=== PATIENT | male | born 1955 | race Caucasian/White ===

== ENCOUNTER 2018-10-15 14:57 | Inpatient (IN) | payer OTHER ==
[2018-10-15] MEDS: NALOXONE (0.4 MG/ML) INJ IV (15:43)
[2018-10-15 16:31] LABS: ADD MAN DIFF? NO
[2018-10-15 16:38] LABS: WHITE BLOOD COUNT 8.2 10^3/ul (4.8-10.8)
[2018-10-15 16:38] LABS: BASOPHIL # 0.1 10^3/ul (0.0-0.1); EOSINOPHILS # 0.2 10^3/ul (0.0-0.5); EOSINOPHILS % 2.9 % (0.0-7.0); HEMATOCRIT 33.7 % (42.0-52.0); HEMOGLOBIN 11.2 g/dl (14.0-18.0); LYMPHOCYTES # 1.4 10^3/ul (0.8-2.9); LYMPHOCYTES % 17.3 % (15.0-51.0); MEAN CORPUSCULAR HEMOGLOBIN 31.8 pg (29.0-33.0); MEAN CORPUSCULAR HGB CONC 33.2 g/dl (32.0-37.0); MEAN CORPUSCULAR VOLUME 95.7 fl (82.0-101.0); MEAN PLATELET VOLUME 9.2 fl (7.4-10.4); MONOCYTE # 1.2 10^3/ul (0.3-0.9); MONOCYTES % 14.3 % (0.0-11.0); NEUTROPHIL # 5.3 10^3/ul (1.6-7.5); NEUTROPHILS % 64.1 % (39.0-77.0); PLATELET COUNT 218 10^3/UL (140-415); RED BLOOD COUNT 3.52 10^6/ul (4.70-6.10); RED CELL DISTRIBUTION WIDTH 17.6 % (11.5-14.5)
[2018-10-15 16:54] LABS: INR 1.14; PROTIME 14.7 Sec (11.9-14.9); PT RATIO 1.1
[2018-10-15 16:57] LABS: ALANINE AMINOTRANSFERASE 33 IU/L (13-69); ALBUMIN 2.8 g/dl (3.3-4.9); ALBUMIN/GLOBULIN RATIO 0.68; ALKALINE PHOSPHATASE 173 IU/L (42-121); ANION GAP 10 (5-13); ASPARTATE AMINO TRANSFERASE 95 IU/L (15-46); BILIRUBIN,INDIRECT 0.7 mg/dl (0-1.1); BILIRUBIN,TOTAL 0.7 mg/dl (0.2-1.3); BLOOD UREA NITROGEN 15 mg/dl (7-20); CALCIUM 8.5 mg/dl (8.4-10.2); CARBON DIOXIDE 21 mmol/L (21-31); CHLORIDE 108 mmol/L (97-110); CREATININE 0.86 mg/dl (0.61-1.24); Estimated GFR > 60 mL/min (>60); GLUCOSE 96 mg/dl (70-220); POTASSIUM 3.2 mmol/L (3.5-5.1); SODIUM 139 mmol/L (135-144); TOTAL PROTEIN 6.9 g/dl (6.1-8.1)
[2018-10-15 16:59] LABS: ACETAMINOPHEN < 10.0 ug/ml (10.0-30.0); ADD UMIC YES; SALICYLATE < 1.0 mg/dl (5.0-30.0); UR ASCORBIC ACID NEGATIVE (NEGATIVE); UR BACTERIA FEW /HPF (NONE SEEN); UR BILIRUBIN (Dip) NEGATIVE (NEGATIVE); UR BLOOD (Dip) 3+ mg/dL (NEGATIVE); UR CLARITY SLIGHTLY CLOUDY (CLEAR); UR COLOR AMBER (YELLOW); UR GLUCOSE (Dip) NEGATIVE (NEGATIVE); UR KETONES (Dip) TRACE mg/dL (NEGATIVE); UR LEUKOCYTE ESTERASE (Dip) NEGATIVE Leu/ul (NEGATIVE); UR MUCUS MANY /HPF (NONE SEEN); UR NITRITE (Dip) NEGATIVE (NEGATIVE); UR RBC 117 /HPF (0-5); UR SPECIFIC GRAVITY (Dip) 1.025 (1.003-1.030); UR SQUAMOUS EPITHELIAL CELL FEW /HPF (FEW); UR TOTAL PROTEIN (Dip) 2+ mg/dl (NEGATIVE); UR UROBILINOGEN (Dip) 2+ mg/dL (NEGATIVE); UR WBC 15 /HPF (0-5)
[2018-10-15 17:08] LABS: TROPONIN-I < 0.012 ng/ml (0.000-0.120)
[2018-10-15 17:29] LABS: AMPHETAMINE/METHAMPHETAMINE Negative (NEGATIVE); BARBITURATES Negative (NEGATIVE); BENZODIAZEPINES Negative (NEGATIVE); CANNABINOIDS Negative (NEGATIVE); COCAINE Negative (NEGATIVE); OPIATES Negative (NEGATIVE)
[2018-10-15] MEDS: metroNIDAZOLE 500 MG/NS (PMX) 100 ML IVPB (17:55)
[2018-10-15] MEDS: CEFEPIME 1GM/50 ML (PMX) 50 ML IVPB (17:56)
[2018-10-15] MEDS: SODIUM CHLORIDE 0.9% 1L BAG IV* (17:57)
[2018-10-15] MEDS: VANCOMYCIN 1 GM (PMX) 250 ML IVPB (18:53)
[2018-10-15] MEDS ORDERED: ONDANSETRON 4 MG INJ IV (21:00)
[2018-10-15] MEDS ORDERED: ACETAMINOPHEN 325 MG TAB PO (21:00)
[2018-10-15 22:17] LABS: LACTIC ACID 2.1 mmol/L (0.5-2.0)
[2018-10-16] MEDS ORDERED: NACL 0.9% 3 ML SYG IV
[2018-10-16] MEDS ORDERED: morphine 2 MG INJ IV
[2018-10-16] MEDS ORDERED: ONDANSETRON 4 MG INJ IV
[2018-10-16] MEDS: DEXTROSE 5%-0.45% NACL 1,000 ML IV ×3 (00:52→21:26)
[2018-10-16 01:18] LABS: CREATINE KINASE 111 IU/L (23-200)
[2018-10-16 01:31] LABS: CK INDEX 3.8; TROPONIN-I < 0.012 ng/ml (0.000-0.120)
[2018-10-16 01:58] LABS: CK-MB 4.27 ng/ml (0.0-2.4)
[2018-10-16 06:48] LABS: ADD MAN DIFF? NO
[2018-10-16 06:53] LABS: BASOPHIL # 0.1 10^3/ul (0.0-0.1); BASOPHILS % 0.7 % (0.0-2.0); EOSINOPHILS # 0.3 10^3/ul (0.0-0.5); EOSINOPHILS % 3.2 % (0.0-7.0); HEMATOCRIT 30.8 % (42.0-52.0); HEMOGLOBIN 10.1 g/dl (14.0-18.0); LYMPHOCYTES # 1.4 10^3/ul (0.8-2.9); LYMPHOCYTES % 16.8 % (15.0-51.0); MEAN CORPUSCULAR HGB CONC 32.8 g/dl (32.0-37.0); MEAN CORPUSCULAR VOLUME 97.5 fl (82.0-101.0); MEAN PLATELET VOLUME 9.1 fl (7.4-10.4); MONOCYTES % 11.8 % (0.0-11.0); NEUTROPHIL # 5.7 10^3/ul (1.6-7.5); PLATELET COUNT 147 10^3/UL (140-415); RED BLOOD COUNT 3.16 10^6/ul (4.70-6.10); RED CELL DISTRIBUTION WIDTH 17.7 % (11.5-14.5)
[2018-10-16 06:53] LABS: WHITE BLOOD COUNT 8.5 10^3/ul (4.8-10.8)
[2018-10-16] MEDS ORDERED: VANCOMYCIN IV PER PHARMACY XX (07:00)
[2018-10-16 07:01] LABS: HEMOGLOBIN A1C 4.6 % (0-5.9)
[2018-10-16 07:07] LABS: CREATINE KINASE 92 IU/L (23-200)
[2018-10-16 07:10] LABS: ALANINE AMINOTRANSFERASE 37 IU/L (13-69); ALBUMIN 2.1 g/dl (3.3-4.9); ALBUMIN/GLOBULIN RATIO 0.56; ALKALINE PHOSPHATASE 119 IU/L (42-121); ANION GAP 7 (5-13); ASPARTATE AMINO TRANSFERASE 67 IU/L (15-46); BILIRUBIN,INDIRECT 0.8 mg/dl (0-1.1); BILIRUBIN,TOTAL 0.8 mg/dl (0.2-1.3); BLOOD UREA NITROGEN 14 mg/dl (7-20); CALCIUM 7.6 mg/dl (8.4-10.2); CARBON DIOXIDE 24 mmol/L (21-31); CHLORIDE 110 mmol/L (97-110); CHOL/HDL RATIO 2.5 RATIO; CHOLESTEROL 96 mg/dl (100-200); CREATININE 0.72 mg/dl (0.61-1.24); Estimated GFR > 60 mL/min (>60); GLUCOSE 80 mg/dl (70-220); HDL CHOLESTEROL 38 mg/dl (30-78); LDL CHOLESTEROL,CALCULATED 48 mg/dl; MAGNESIUM 1.8 mg/dl (1.7-2.5); POTASSIUM 3.6 mmol/L (3.5-5.1); SODIUM 141 mmol/L (135-144); TOTAL PROTEIN 5.8 g/dl (6.1-8.1); TRIGLYCERIDES 50 mg/dl (0-149)
[2018-10-16 07:19] LABS: TROPONIN-I < 0.012 ng/ml (0.000-0.120)
[2018-10-16 07:28] LABS: CK-MB 3.68 ng/ml (0.0-2.4)
[2018-10-16 07:39] LABS: THYROID STIMULATING HORMONE 0.681 MIU/L (0.465-4.680)
[2018-10-16] MEDS: LEVETIRACETAM 1000 MG (PMX) 100 ML IVPB ×2 (08:14→22:37)
[2018-10-16] MEDS: CEFEPIME 1GM/50 ML (PMX) 50 ML IVPB ×2 (08:18→21:27)
[2018-10-16] MEDS: CHLORDIAZEPOXIDE 25 MG CAP PO ×3 (09:56→21:14)
[2018-10-16] MEDS: MULTIVITAMINS 10 ML, THIAMINE 100 MG, FOLIC ACID 1 MG in SOD CHLORIDE 0.9% 1,000 ML IVPB (10:06)
[2018-10-16] MEDS: GABAPENTIN 300 MG CAP PO ×2 (10:38→21:14)
[2018-10-16] MEDS: VANCOMYCIN HCL 1.25 GM in SOD CHLORIDE 0.9% 250 ML IVPB ×2 (10:59→23:03)
[2018-10-16] MEDS ORDERED: METHADONE (1 MG/ML 5 ML PO UD SYG) PO (11:00)
[2018-10-16] MEDS: METHADONE 10 MG TAB PO (11:38)
[2018-10-16] MEDS: traZODone 50 MG TAB PO (21:13)
[2018-10-17] MEDS: GUAIFENESIN/CODEINE 5ML CUP PO ×2 (00:28→22:10)
[2018-10-17] MEDS: DEXTROSE 5%-0.45% NACL 1,000 ML IV ×2 (04:49→16:01)
[2018-10-17 06:36] LABS: ADD MAN DIFF? NO
[2018-10-17 07:00] LABS: MAGNESIUM 1.7 mg/dl (1.7-2.5)
[2018-10-17 07:00] LABS: PHOSPHORUS 3.1 mg/dl (2.5-4.9)
[2018-10-17 07:02] LABS: ANION GAP 5 (5-13); BLOOD UREA NITROGEN 15 mg/dl (7-20); CALCIUM 7.8 mg/dl (8.4-10.2); CARBON DIOXIDE 26 mmol/L (21-31); CHLORIDE 107 mmol/L (97-110); CREATININE 0.73 mg/dl (0.61-1.24); Estimated GFR > 60 mL/min (>60); GLUCOSE 108 mg/dl (70-220); POTASSIUM 3.6 mmol/L (3.5-5.1); SODIUM 138 mmol/L (135-144)
[2018-10-17 08:19] LABS: WHITE BLOOD COUNT 5.4 10^3/ul (4.8-10.8)
[2018-10-17 08:19] LABS: BASOPHILS % 0.6 % (0.0-2.0); EOSINOPHILS # 0.4 10^3/ul (0.0-0.5); EOSINOPHILS % 6.4 % (0.0-7.0); HEMATOCRIT 33.3 % (42.0-52.0); HEMOGLOBIN 10.7 g/dl (14.0-18.0); LYMPHOCYTES # 0.8 10^3/ul (0.8-2.9); LYMPHOCYTES % 13.8 % (15.0-51.0); MEAN CORPUSCULAR HEMOGLOBIN 31.8 pg (29.0-33.0); MEAN CORPUSCULAR HGB CONC 32.1 g/dl (32.0-37.0); MEAN CORPUSCULAR VOLUME 98.8 fl (82.0-101.0); MEAN PLATELET VOLUME 9.8 fl (7.4-10.4); MONOCYTE # 0.7 10^3/ul (0.3-0.9); MONOCYTES % 12.5 % (0.0-11.0); NEUTROPHIL # 3.6 10^3/ul (1.6-7.5); NEUTROPHILS % 66.3 % (39.0-77.0); PLATELET COUNT 117 10^3/UL (140-415); RED BLOOD COUNT 3.37 10^6/ul (4.70-6.10); RED CELL DISTRIBUTION WIDTH 17.9 % (11.5-14.5)
[2018-10-17] MEDS: LEVETIRACETAM 1000 MG (PMX) 100 ML IVPB ×2 (08:38→22:09)
[2018-10-17] MEDS: GABAPENTIN 300 MG CAP PO ×2 (08:44→22:09)
[2018-10-17] MEDS: METHADONE 10 MG TAB PO (08:44)
[2018-10-17] MEDS: CHLORDIAZEPOXIDE 25 MG CAP PO ×3 (08:45→22:09)
[2018-10-17] MEDS: CEFEPIME 1GM/50 ML (PMX) 50 ML IVPB ×2 (08:56→21:22)
[2018-10-17] MEDS: MULTIVITAMINS 10 ML, THIAMINE 100 MG, FOLIC ACID 1 MG in SOD CHLORIDE 0.9% 1,000 ML IVPB (09:32)
[2018-10-17] MEDS: VANCOMYCIN HCL 1.25 GM in SOD CHLORIDE 0.9% 250 ML IVPB (09:37)
[2018-10-17 11:51] LABS: HAAIG REFLEX REFLEX FILED
[2018-10-17] MEDS: FUROSEMIDE 20 MG INJ IV (12:28)
[2018-10-17 12:37] LABS: HEPATITIS B SURFACE ANTIGEN NEGATIVE (NEGATIVE)
[2018-10-17 12:56] LABS: HEPATITIS B CORE ANTIBODY REACTIVE (NEGATIVE)
[2018-10-17 12:59] LABS: HEPATITIS C VIRAL ANTIBODY REACTIVE (NEGATIVE)
[2018-10-17] MEDS: traZODone 50 MG TAB PO (22:09)
[2018-10-18] MEDS: VANCOMYCIN 1 GM 250 ML IVPB ×2 (02:09→14:55)
[2018-10-18] MEDS: DEXTROSE 5%-0.45% NACL 1,000 ML IV (02:09)
[2018-10-18 06:46] LABS: ADD MAN DIFF? NO
[2018-10-18 06:57] LABS: BASOPHILS % 0.4 % (0.0-2.0); EOSINOPHILS # 0.3 10^3/ul (0.0-0.5); EOSINOPHILS % 3.9 % (0.0-7.0); HEMOGLOBIN 9.9 g/dl (14.0-18.0); LYMPHOCYTES # 1.1 10^3/ul (0.8-2.9); LYMPHOCYTES % 15.2 % (15.0-51.0); MEAN CORPUSCULAR HEMOGLOBIN 32.4 pg (29.0-33.0); MONOCYTES % 12.8 % (0.0-11.0); NEUTROPHILS % 67.2 % (39.0-77.0); PLATELET COUNT 113 10^3/UL (140-415); RED BLOOD COUNT 3.06 10^6/ul (4.70-6.10); RED CELL DISTRIBUTION WIDTH 17.7 % (11.5-14.5)
[2018-10-18 06:57] LABS: WHITE BLOOD COUNT 7.4 10^3/ul (4.8-10.8)
[2018-10-18 07:15] LABS: PHOSPHORUS 2.8 mg/dl (2.5-4.9)
[2018-10-18 07:15] LABS: MAGNESIUM 1.6 mg/dl (1.7-2.5)
[2018-10-18 07:28] LABS: ALANINE AMINOTRANSFERASE 30 IU/L (13-69); ALBUMIN 1.9 g/dl (3.3-4.9); ALBUMIN/GLOBULIN RATIO 0.55; ALKALINE PHOSPHATASE 113 IU/L (42-121); ANION GAP 4 (5-13); ASPARTATE AMINO TRANSFERASE 51 IU/L (15-46); BILIRUBIN,INDIRECT 0.9 mg/dl (0-1.1); BILIRUBIN,TOTAL 0.9 mg/dl (0.2-1.3); BLOOD UREA NITROGEN 16 mg/dl (7-20); CALCIUM 7.4 mg/dl (8.4-10.2); CARBON DIOXIDE 28 mmol/L (21-31); CHLORIDE 108 mmol/L (97-110); CREATININE 0.73 mg/dl (0.61-1.24); Estimated GFR > 60 mL/min (>60); GLUCOSE 95 mg/dl (70-220); POTASSIUM 3.7 mmol/L (3.5-5.1); SODIUM 140 mmol/L (135-144); TOTAL PROTEIN 5.3 g/dl (6.1-8.1)
[2018-10-18] MEDS: LEVETIRACETAM 1000 MG (PMX) 100 ML IVPB ×2 (09:48→21:04)
[2018-10-18] MEDS: CHLORDIAZEPOXIDE 25 MG CAP PO ×2 (09:50→20:48)
[2018-10-18] MEDS: METHADONE 10 MG TAB PO (09:50)
[2018-10-18] MEDS: CEFEPIME 1GM/50 ML (PMX) 50 ML IVPB ×2 (09:51→20:48)
[2018-10-18] MEDS: GABAPENTIN 300 MG CAP PO ×2 (09:51→20:48)
[2018-10-18] MEDS: FUROSEMIDE 20 MG INJ IV (09:51)
[2018-10-18] MEDS: traZODone 50 MG TAB PO (20:48)
[2018-10-18] MEDS: SOD CHLORIDE 0.9% 100 ML (22:44)
[2018-10-19] MEDS: IOHEXOL 300MG/ML 150 ML BTL (00:25)
[2018-10-19] MEDS: VANCOMYCIN 1 GM 250 ML IVPB (01:48)
[2018-10-19] MEDS: CEFEPIME 1GM/50 ML (PMX) 50 ML IVPB ×2 (09:42→21:56)
[2018-10-19] MEDS: CHLORDIAZEPOXIDE 25 MG CAP PO (09:51)
[2018-10-19] MEDS: GABAPENTIN 300 MG CAP PO ×2 (09:51→21:56)
[2018-10-19] MEDS: FUROSEMIDE 20 MG INJ IV (09:51)
[2018-10-19] MEDS: METHADONE 10 MG TAB PO (09:52)
[2018-10-19] MEDS: LEVETIRACETAM 1000 MG (PMX) 100 ML IVPB ×2 (10:42→23:22)
[2018-10-19] MEDS: HYDROCODONE/APAP (5/325) TAB PO ×2 (10:43→23:22)
[2018-10-19 13:15] LABS: ADD MAN DIFF? NO
[2018-10-19 13:21] LABS: WHITE BLOOD COUNT 7.9 10^3/ul (4.8-10.8)
[2018-10-19 13:22] LABS: BASOPHIL # 0.1 10^3/ul (0.0-0.1); BASOPHILS % 0.8 % (0.0-2.0); EOSINOPHILS # 0.3 10^3/ul (0.0-0.5); EOSINOPHILS % 4.2 % (0.0-7.0); HEMATOCRIT 33.4 % (42.0-52.0); LYMPHOCYTES % 12.1 % (15.0-51.0); MEAN CORPUSCULAR HEMOGLOBIN 31.8 pg (29.0-33.0); MEAN CORPUSCULAR HGB CONC 32.9 g/dl (32.0-37.0); MEAN CORPUSCULAR VOLUME 96.5 fl (82.0-101.0); MEAN PLATELET VOLUME 10.2 fl (7.4-10.4); MONOCYTE # 1.2 10^3/ul (0.3-0.9); MONOCYTES % 14.7 % (0.0-11.0); NEUTROPHIL # 5.3 10^3/ul (1.6-7.5); NEUTROPHILS % 67.7 % (39.0-77.0); PLATELET COUNT 133 10^3/UL (140-415); POSITIVE DIFF @See below; RED BLOOD COUNT 3.46 10^6/ul (4.70-6.10); RED CELL DISTRIBUTION WIDTH 17.9 % (11.5-14.5)
[2018-10-19 13:38] LABS: ALANINE AMINOTRANSFERASE 27 IU/L (13-69); ALBUMIN 2.1 g/dl (3.3-4.9); ALBUMIN/GLOBULIN RATIO 0.56; ALKALINE PHOSPHATASE 113 IU/L (42-121); ANION GAP 4 (5-13); ASPARTATE AMINO TRANSFERASE 51 IU/L (15-46); BILIRUBIN,INDIRECT 0.6 mg/dl (0-1.1); BILIRUBIN,TOTAL 0.6 mg/dl (0.2-1.3); BLOOD UREA NITROGEN 19 mg/dl (7-20); CALCIUM 7.4 mg/dl (8.4-10.2); CARBON DIOXIDE 29 mmol/L (21-31); CHLORIDE 105 mmol/L (97-110); CREATININE 0.84 mg/dl (0.61-1.24); Estimated GFR > 60 mL/min (>60); GLUCOSE 99 mg/dl (70-220); POTASSIUM 3.6 mmol/L (3.5-5.1); SODIUM 138 mmol/L (135-144); TOTAL PROTEIN 5.8 g/dl (6.1-8.1)
[2018-10-19 13:45] LABS: VANCOMYCIN,TROUGH 16.7 ug/ml (10.0-20.0)
[2018-10-19] MEDS: traZODone 50 MG TAB PO (21:56)
[2018-10-19] MEDS: VANCOMYCIN HCL 1.25 GM in SOD CHLORIDE 0.9% 250 ML IVPB (23:22)
[2018-10-19] MEDS: ALBUTEROL/IPRATROPIUM (NEB) 3 ML AMP HHN (23:44)
[2018-10-20 07:52] LABS: ADD MAN DIFF? NO
[2018-10-20 07:54] LABS: BASOPHIL # 0.1 10^3/ul (0.0-0.1); BASOPHILS % 0.6 % (0.0-2.0); EOSINOPHILS # 0.3 10^3/ul (0.0-0.5); EOSINOPHILS % 4.1 % (0.0-7.0); HEMATOCRIT 31.5 % (42.0-52.0); HEMOGLOBIN 10.4 g/dl (14.0-18.0); LYMPHOCYTES # 1.2 10^3/ul (0.8-2.9); LYMPHOCYTES % 14.9 % (15.0-51.0); MEAN CORPUSCULAR HEMOGLOBIN 31.6 pg (29.0-33.0); MEAN CORPUSCULAR VOLUME 95.7 fl (82.0-101.0); MONOCYTE # 1.2 10^3/ul (0.3-0.9); MONOCYTES % 15.6 % (0.0-11.0); NEUTROPHILS % 64.4 % (39.0-77.0); PLATELET COUNT 125 10^3/UL (140-415); RED BLOOD COUNT 3.29 10^6/ul (4.70-6.10); RED CELL DISTRIBUTION WIDTH 17.5 % (11.5-14.5)
[2018-10-20 07:54] LABS: WHITE BLOOD COUNT 7.8 10^3/ul (4.8-10.8)
[2018-10-20 08:20] LABS: ANION GAP 2 (5-13); BLOOD UREA NITROGEN 24 mg/dl (7-20); CALCIUM 7.3 mg/dl (8.4-10.2); CARBON DIOXIDE 28 mmol/L (21-31); CHLORIDE 109 mmol/L (97-110); CREATININE 0.83 mg/dl (0.61-1.24); Estimated GFR > 60 mL/min (>60); GLUCOSE 84 mg/dl (70-220); MAGNESIUM 1.8 mg/dl (1.7-2.5); PHOSPHORUS 3.4 mg/dl (2.5-4.9); POTASSIUM 4.2 mmol/L (3.5-5.1); SODIUM 139 mmol/L (135-144)
[2018-10-20] MEDS: LEVETIRACETAM 1000 MG (PMX) 100 ML IVPB ×2 (08:20→21:33)
[2018-10-20] MEDS: METHADONE 10 MG TAB PO (08:21)
[2018-10-20] MEDS: GABAPENTIN 300 MG CAP PO ×2 (08:21→20:58)
[2018-10-20] MEDS: CEFEPIME 1GM/50 ML (PMX) 50 ML IVPB ×2 (09:28→20:57)
[2018-10-20] MEDS: VANCOMYCIN HCL 1.25 GM in SOD CHLORIDE 0.9% 250 ML IVPB ×2 (20:00→20:57)
[2018-10-20] MEDS: ALBUTEROL/IPRATROPIUM (NEB) 3 ML AMP HHN (21:42)
[2018-10-21] MEDS: ALBUTEROL/IPRATROPIUM (NEB) 3 ML AMP HHN ×7 (00:56→20:23)
[2018-10-21 06:58] LABS: ADD MAN DIFF? NO
[2018-10-21 07:02] LABS: WHITE BLOOD COUNT 7.7 10^3/ul (4.8-10.8)
[2018-10-21 07:02] LABS: BASOPHIL # 0.1 10^3/ul (0.0-0.1); BASOPHILS % 0.6 % (0.0-2.0); EOSINOPHILS # 0.2 10^3/ul (0.0-0.5); EOSINOPHILS % 2.2 % (0.0-7.0); HEMATOCRIT 31.7 % (42.0-52.0); HEMOGLOBIN 10.3 g/dl (14.0-18.0); LYMPHOCYTES % 12.7 % (15.0-51.0); MEAN CORPUSCULAR HEMOGLOBIN 31.4 pg (29.0-33.0); MEAN CORPUSCULAR HGB CONC 32.5 g/dl (32.0-37.0); MEAN CORPUSCULAR VOLUME 96.6 fl (82.0-101.0); MEAN PLATELET VOLUME 10.5 fl (7.4-10.4); MONOCYTE # 1.2 10^3/ul (0.3-0.9); MONOCYTES % 15.5 % (0.0-11.0); NEUTROPHIL # 5.3 10^3/ul (1.6-7.5); NEUTROPHILS % 68.5 % (39.0-77.0); PLATELET COUNT 139 10^3/UL (140-415); RED BLOOD COUNT 3.28 10^6/ul (4.70-6.10); RED CELL DISTRIBUTION WIDTH 17.4 % (11.5-14.5)
[2018-10-21 07:41] LABS: ANION GAP 3 (5-13); BLOOD UREA NITROGEN 25 mg/dl (7-20); CALCIUM 7.4 mg/dl (8.4-10.2); CARBON DIOXIDE 26 mmol/L (21-31); CHLORIDE 108 mmol/L (97-110); CREATININE 0.74 mg/dl (0.61-1.24); Estimated GFR > 60 mL/min (>60); GLUCOSE 94 mg/dl (70-220); POTASSIUM 4.5 mmol/L (3.5-5.1); SODIUM 137 mmol/L (135-144)
[2018-10-21] MEDS: GABAPENTIN 300 MG CAP PO ×2 (08:22→20:57)
[2018-10-21] MEDS: LEVETIRACETAM 1000 MG (PMX) 100 ML IVPB ×2 (08:22→20:57)
[2018-10-21] MEDS: ENOXAPARIN 40 MG/0.4 ML SYG SC (08:25)
[2018-10-21] MEDS: CEFEPIME 1GM/50 ML (PMX) 50 ML IVPB ×2 (08:56→20:57)
[2018-10-21] MEDS: HYDROCODONE/APAP (5/325) TAB PO ×2 (09:32→23:37)
[2018-10-21 13:45] LABS: AMMONIA 29 umol/l (9-30)
[2018-10-21] MEDS: VANCOMYCIN HCL 1.25 GM in SOD CHLORIDE 0.9% 250 ML IVPB (20:51)
[2018-10-22] MEDS: ALBUTEROL/IPRATROPIUM (NEB) 3 ML AMP HHN ×8 (01:45→23:48)
[2018-10-22 06:59] LABS: ADD MAN DIFF? NO
[2018-10-22] MEDS ORDERED: SUCCINYLCHOLINE CHLORIDE 100 MG/5 ML SYG IV (07:00)
[2018-10-22] MEDS ORDERED: PROPOFOL 200 MG INJ (07:00)
[2018-10-22 07:06] LABS: WHITE BLOOD COUNT 6.1 10^3/ul (4.8-10.8)
[2018-10-22 07:06] LABS: BASOPHILS % 0.7 % (0.0-2.0); EOSINOPHILS # 0.3 10^3/ul (0.0-0.5); EOSINOPHILS % 5.4 % (0.0-7.0); HEMATOCRIT 30.2 % (42.0-52.0); HEMOGLOBIN 9.8 g/dl (14.0-18.0); LYMPHOCYTES % 17.1 % (15.0-51.0); MEAN CORPUSCULAR HEMOGLOBIN 31.4 pg (29.0-33.0); MEAN CORPUSCULAR HGB CONC 32.5 g/dl (32.0-37.0); MEAN CORPUSCULAR VOLUME 96.8 fl (82.0-101.0); MEAN PLATELET VOLUME 9.9 fl (7.4-10.4); MONOCYTE # 1.1 10^3/ul (0.3-0.9); MONOCYTES % 18.5 % (0.0-11.0); NEUTROPHIL # 3.5 10^3/ul (1.6-7.5); PLATELET COUNT 124 10^3/UL (140-415); RED BLOOD COUNT 3.12 10^6/ul (4.70-6.10); RED CELL DISTRIBUTION WIDTH 17.4 % (11.5-14.5)
[2018-10-22 07:35] LABS: ANION GAP 5 (5-13); BLOOD UREA NITROGEN 22 mg/dl (7-20); CALCIUM 7.4 mg/dl (8.4-10.2); CARBON DIOXIDE 27 mmol/L (21-31); CHLORIDE 106 mmol/L (97-110); CREATININE 0.68 mg/dl (0.61-1.24); Estimated GFR > 60 mL/min (>60); GLUCOSE 104 mg/dl (70-220); MAGNESIUM 1.9 mg/dl (1.7-2.5); PHOSPHORUS 3.3 mg/dl (2.5-4.9); SODIUM 138 mmol/L (135-144)
[2018-10-22] MEDS: GABAPENTIN 300 MG CAP PO ×2 (08:48→20:27)
[2018-10-22] MEDS: LEVETIRACETAM 1000 MG (PMX) 100 ML IVPB ×2 (08:48→20:27)
[2018-10-22] MEDS: CEFEPIME 1GM/50 ML (PMX) 50 ML IVPB ×2 (08:48→20:49)
[2018-10-22] MEDS: INDOMETHACIN 50 MG SUPP PR (12:30)
[2018-10-22] MEDS ORDERED: IOHEXOL 300MG/ML 30 ML BTL ×2 (13:41→15:23)
[2018-10-22] MEDS ORDERED: EPHEDrine SULFATE 50 MG/5 ML SYG IV (14:30)
[2018-10-22] MEDS ORDERED: ONDANSETRON 4 MG INJ IV (14:30)
[2018-10-22] MEDS ORDERED: HYDROmorphONE 1 MG/5 ML IV SYRINGE IV ×2 (14:30→16:30)
[2018-10-22] MEDS ORDERED: MEPERIDINE 25 MG INJ IV (14:30)
[2018-10-22] MEDS ORDERED: LABETALOL HCL 20MG INJ IV (14:30)
[2018-10-22] MEDS ORDERED: FENTAnyl 50 MCG/ML VIAL IV (14:30)
[2018-10-22] MEDS ORDERED: DIPHENHYDRAMINE 50 MG INJ IV (14:30)
[2018-10-22] MEDS ORDERED: PROCHLORPERAZINE 10 MG INJ IV (14:30)
[2018-10-22] MEDS ORDERED: hydrALAzine 20 MG INJ IV (14:30)
[2018-10-22] MEDS ORDERED: MIDAZOLAM 1 MG/ML 2 ML INJ (14:52)
[2018-10-22] MEDS ORDERED: LIDOCAINE 2% (SDV) 5 ML INJ (14:52)
[2018-10-22] MEDS ORDERED: PROPOFOL 20 ML (14:52)
[2018-10-22] MEDS ORDERED: FENTAnyl 50 MCG/ML VIAL (14:52)
[2018-10-22] MEDS ORDERED: ONDANSETRON 4 MG INJ (15:08)
[2018-10-22] MEDS ORDERED: DEXAMETHASONE 4 MG/ML 5 ML INJ (15:08)
[2018-10-22] MEDS ORDERED: FAMOTIDINE 20 MG INJ (15:10)
[2018-10-22] MEDS ORDERED: METOCLOPRAMIDE 10 MG INJ (15:11)
[2018-10-22] MEDS: METOCLOPRAMIDE 10 MG INJ IV ×2 (18:12→23:34)
[2018-10-22 20:18] LABS: VANCOMYCIN,TROUGH 10.5 ug/ml (10.0-20.0)
[2018-10-22] MEDS: VANCOMYCIN HCL 1.25 GM in SOD CHLORIDE 0.9% 250 ML IVPB (22:32)
[2018-10-23] MEDS ORDERED: PENDING SANTYL ORDER FOR WOUND CARE XX (04:00)
[2018-10-23] MEDS: ALBUTEROL/IPRATROPIUM (NEB) 3 ML AMP HHN ×5 (04:05→20:57)
[2018-10-23] MEDS: SOD CHLORIDE 0.9% 1,000 ML IV (04:58)
[2018-10-23] MEDS: METOCLOPRAMIDE 10 MG INJ IV ×3 (05:00→17:07)
[2018-10-23] MEDS: LEVETIRACETAM 1000 MG (PMX) 100 ML IVPB ×2 (08:23→21:07)
[2018-10-23] MEDS: CEFEPIME 1GM/50 ML (PMX) 50 ML IVPB ×2 (08:24→20:21)
[2018-10-23] MEDS: GABAPENTIN 300 MG CAP PO ×2 (08:24→20:21)
[2018-10-24] MEDS: ALBUTEROL/IPRATROPIUM (NEB) 3 ML AMP HHN ×6 (00:20→19:11)
[2018-10-24] MEDS: METOCLOPRAMIDE 10 MG INJ IV ×4 (00:35→17:42)
[2018-10-24] MEDS: LORAZEPAM 2 MG INJ IV ×2 (00:37→21:29)
[2018-10-24 05:57] LABS: ADD MAN DIFF? NO
[2018-10-24 06:06] LABS: WHITE BLOOD COUNT 10.2 10^3/ul (4.8-10.8)
[2018-10-24 06:06] LABS: BASOPHIL # 0.1 10^3/ul (0.0-0.1); BASOPHILS % 0.5 % (0.0-2.0); EOSINOPHILS % 0.2 % (0.0-7.0); HEMATOCRIT 30.8 % (42.0-52.0); HEMOGLOBIN 10.2 g/dl (14.0-18.0); LYMPHOCYTES # 0.8 10^3/ul (0.8-2.9); LYMPHOCYTES % 8.1 % (15.0-51.0); MEAN CORPUSCULAR HEMOGLOBIN 32.2 pg (29.0-33.0); MEAN CORPUSCULAR HGB CONC 33.1 g/dl (32.0-37.0); MEAN CORPUSCULAR VOLUME 97.2 fl (82.0-101.0); MEAN PLATELET VOLUME 10.2 fl (7.4-10.4); MONOCYTE # 1.5 10^3/ul (0.3-0.9); MONOCYTES % 14.6 % (0.0-11.0); NEUTROPHIL # 7.7 10^3/ul (1.6-7.5); NEUTROPHILS % 76.1 % (39.0-77.0); PLATELET COUNT 177 10^3/UL (140-415); RED BLOOD COUNT 3.17 10^6/ul (4.70-6.10); RED CELL DISTRIBUTION WIDTH 16.5 % (11.5-14.5)
[2018-10-24 06:27] LABS: ALANINE AMINOTRANSFERASE 21 IU/L (13-69); ALBUMIN 2.1 g/dl (3.3-4.9); ALBUMIN/GLOBULIN RATIO 0.56; ALKALINE PHOSPHATASE 131 IU/L (42-121); ANION GAP 5 (5-13); ASPARTATE AMINO TRANSFERASE 58 IU/L (15-46); BILIRUBIN,INDIRECT 0.4 mg/dl (0-1.1); BILIRUBIN,TOTAL 0.4 mg/dl (0.2-1.3); BLOOD UREA NITROGEN 25 mg/dl (7-20); CALCIUM 7.9 mg/dl (8.4-10.2); CARBON DIOXIDE 27 mmol/L (21-31); CHLORIDE 108 mmol/L (97-110); CREATININE 0.59 mg/dl (0.61-1.24); Estimated GFR > 60 mL/min (>60); GLUCOSE 106 mg/dl (70-220); POTASSIUM 4.7 mmol/L (3.5-5.1); SODIUM 140 mmol/L (135-144); TOTAL PROTEIN 5.8 g/dl (6.1-8.1)
[2018-10-24 07:02] LABS: MAGNESIUM 2.2 mg/dl (1.7-2.5)
[2018-10-24 07:02] LABS: PHOSPHORUS 2.2 mg/dl (2.5-4.9)
[2018-10-24] MEDS: HYDROCODONE/APAP (5/325) TAB PO ×2 (09:28→19:47)
[2018-10-24] MEDS: GABAPENTIN 300 MG CAP PO ×2 (09:29→20:05)
[2018-10-24] MEDS: THIAMINE 100 MG TAB PO (09:29)
[2018-10-24] MEDS: CEFEPIME 1GM/50 ML (PMX) 50 ML IVPB (09:41)
[2018-10-24] MEDS: LEVETIRACETAM 1000 MG (PMX) 100 ML IVPB ×2 (10:16→21:02)
[2018-10-25] MEDS: METOCLOPRAMIDE 10 MG INJ IV ×4 (00:19→17:29)
[2018-10-25] MEDS: ALBUTEROL/IPRATROPIUM (NEB) 3 ML AMP HHN ×7 (00:48→20:28)
[2018-10-25] MEDS: HYDROCODONE/APAP (5/325) TAB PO ×3 (05:10→20:08)
[2018-10-25] MEDS: LORAZEPAM 2 MG INJ IV ×2 (05:10→22:56)
[2018-10-25] MEDS: morphine 2 MG INJ IV (06:14)
[2018-10-25] MEDS: THIAMINE 100 MG TAB PO (09:13)
[2018-10-25] MEDS: LEVETIRACETAM 1000 MG (PMX) 100 ML IVPB ×2 (09:13→20:08)
[2018-10-25] MEDS: CHLORDIAZEPOXIDE 25 MG CAP PO ×3 (09:13→20:08)
[2018-10-25] MEDS: GABAPENTIN 300 MG CAP PO ×2 (09:13→20:08)
[2018-10-25] MEDS: FUROSEMIDE 20 MG INJ IV (12:47)
[2018-10-25] MEDS: LACTULOSE 30ML CUP PO (20:08)
[2018-10-26] MEDS: ALBUTEROL/IPRATROPIUM (NEB) 3 ML AMP HHN ×6 (00:08→20:39)
[2018-10-26] MEDS: METOCLOPRAMIDE 10 MG INJ IV ×4 (00:21→19:36)
[2018-10-26 05:55] LABS: ADD MAN DIFF? NO
[2018-10-26 05:58] LABS: WHITE BLOOD COUNT 4.5 10^3/ul (4.8-10.8)
[2018-10-26 05:58] LABS: BASOPHIL # 0.1 10^3/ul (0.0-0.1); BASOPHILS % 1.1 % (0.0-2.0); EOSINOPHILS # 0.3 10^3/ul (0.0-0.5); EOSINOPHILS % 6.9 % (0.0-7.0); HEMATOCRIT 36.7 % (42.0-52.0); LYMPHOCYTES # 0.9 10^3/ul (0.8-2.9); LYMPHOCYTES % 20.6 % (15.0-51.0); MEAN CORPUSCULAR HEMOGLOBIN 31.7 pg (29.0-33.0); MEAN CORPUSCULAR HGB CONC 32.7 g/dl (32.0-37.0); MEAN CORPUSCULAR VOLUME 97.1 fl (82.0-101.0); MEAN PLATELET VOLUME 9.6 fl (7.4-10.4); MONOCYTE # 0.7 10^3/ul (0.3-0.9); NEUTROPHIL # 2.5 10^3/ul (1.6-7.5); NEUTROPHILS % 54.7 % (39.0-77.0); PLATELET COUNT 172 10^3/UL (140-415); RED BLOOD COUNT 3.78 10^6/ul (4.70-6.10); RED CELL DISTRIBUTION WIDTH 16.4 % (11.5-14.5)
[2018-10-26 06:27] LABS: ALANINE AMINOTRANSFERASE 30 IU/L (13-69); ALBUMIN 2.6 g/dl (3.3-4.9); ALBUMIN/GLOBULIN RATIO 0.59; ALKALINE PHOSPHATASE 129 IU/L (42-121); ANION GAP 4 (5-13); ASPARTATE AMINO TRANSFERASE 97 IU/L (15-46); BLOOD UREA NITROGEN 20 mg/dl (7-20); CALCIUM 8.4 mg/dl (8.4-10.2); CARBON DIOXIDE 30 mmol/L (21-31); CHLORIDE 106 mmol/L (97-110); CREATININE 0.58 mg/dl (0.61-1.24); Estimated GFR > 60 mL/min (>60); GLUCOSE 74 mg/dl (70-220); POTASSIUM 4.7 mmol/L (3.5-5.1); SODIUM 140 mmol/L (135-144)
[2018-10-26] MEDS: LEVETIRACETAM 1000 MG (PMX) 100 ML IVPB (10:16)
[2018-10-26] MEDS: SPIRONOLACTONE 50 MG TAB PO (10:17)
[2018-10-26] MEDS: LACTULOSE 30ML CUP PO ×2 (10:17→20:21)
[2018-10-26] MEDS: THIAMINE 100 MG TAB PO (10:18)
[2018-10-26] MEDS: FUROSEMIDE 20 MG TAB PO (10:18)
[2018-10-26] MEDS: GABAPENTIN 300 MG CAP PO ×2 (10:18→20:20)
[2018-10-26] MEDS: HYDROCODONE/APAP (5/325) TAB PO (10:19)
[2018-10-26 15:46] LABS: B-TYPE NATRIURETIC PEPTIDE 308 PG/ML (0-125)
[2018-10-26] MEDS: LEVETIRACETAM 500 MG TAB PO (20:20)
[2018-10-27] MEDS: ALBUTEROL/IPRATROPIUM (NEB) 3 ML AMP HHN ×6 (00:31→20:08)
[2018-10-27] MEDS: METOCLOPRAMIDE 10 MG INJ IV ×4 (05:40→18:40)
[2018-10-27] MEDS: LACTULOSE 30ML CUP PO ×2 (09:43→21:17)
[2018-10-27] MEDS: GABAPENTIN 300 MG CAP PO ×2 (09:43→21:17)
[2018-10-27] MEDS: THIAMINE 100 MG TAB PO (09:43)
[2018-10-27] MEDS: SPIRONOLACTONE 50 MG TAB PO (09:43)
[2018-10-27] MEDS: LEVETIRACETAM 500 MG TAB PO ×2 (09:43→21:17)
[2018-10-27] MEDS: HYDROCODONE/APAP (5/325) TAB PO ×2 (09:43→15:30)
[2018-10-27] MEDS: FUROSEMIDE 20 MG INJ IV (09:44)
[2018-10-27] MEDS: LORAZEPAM 2 MG INJ IV (09:59)
[2018-10-27 16:20] LABS: INR 1.17; PT RATIO 1.2
[2018-10-27 16:21] LABS: PARTIAL THROMBOPLASTIN TIME 32.5 Sec (23.0-35.0)
[2018-10-27] MEDS: LIDOCAINE 1% (MPF) 5 ML VIAL (16:57)
[2018-10-27 17:45] LABS: FLD PMN% 24.8 %; FLD RBC 0 /uL; FLD WBC 105 /cmm
[2018-10-27 18:22] LABS: FLD CLARITY HAZY
[2018-10-27 18:22] LABS: FLD TYPE ASCITES
[2018-10-27 18:23] LABS: FLD COLOR OTHER
[2018-10-27 18:24] LABS: FLD MN% 75.2 %
[2018-10-27] MEDS: HEPARIN 5,000 UNIT/1 ML VIAL SC (21:19)
[2018-10-28] MEDS: ALBUTEROL/IPRATROPIUM (NEB) 3 ML AMP HHN ×6 (00:49→20:56)
[2018-10-28] MEDS: METOCLOPRAMIDE 10 MG INJ IV ×4 (05:19→18:33)
[2018-10-28] MEDS: LACTULOSE 30ML CUP PO ×3 (05:19→22:00)
[2018-10-28 07:12] LABS: WHITE BLOOD COUNT 5.6 10^3/ul (4.8-10.8)
[2018-10-28 07:12] LABS: BASOPHILS % 0.7 % (0.0-2.0); EOSINOPHILS # 0.3 10^3/ul (0.0-0.5); EOSINOPHILS % 5.9 % (0.0-7.0); HEMATOCRIT 34.8 % (42.0-52.0); HEMOGLOBIN 11.4 g/dl (14.0-18.0); LYMPHOCYTES # 0.9 10^3/ul (0.8-2.9); LYMPHOCYTES % 16.3 % (15.0-51.0); MEAN CORPUSCULAR HEMOGLOBIN 31.8 pg (29.0-33.0); MEAN CORPUSCULAR HGB CONC 32.8 g/dl (32.0-37.0); MEAN CORPUSCULAR VOLUME 96.9 fl (82.0-101.0); MEAN PLATELET VOLUME 9.3 fl (7.4-10.4); MONOCYTE # 0.7 10^3/ul (0.3-0.9); MONOCYTES % 12.4 % (0.0-11.0); NEUTROPHIL # 3.6 10^3/ul (1.6-7.5); NEUTROPHILS % 64.2 % (39.0-77.0); PLATELET COUNT 177 10^3/UL (140-415); RED BLOOD COUNT 3.59 10^6/ul (4.70-6.10); RED CELL DISTRIBUTION WIDTH 16.6 % (11.5-14.5)
[2018-10-28 07:13] LABS: ADD MAN DIFF? NO
[2018-10-28 07:36] LABS: ALANINE AMINOTRANSFERASE 38 IU/L (13-69); ALBUMIN 2.5 g/dl (3.3-4.9); ALBUMIN/GLOBULIN RATIO 0.62; ALKALINE PHOSPHATASE 131 IU/L (42-121); ANION GAP 2 (5-13); ASPARTATE AMINO TRANSFERASE 73 IU/L (15-46); BLOOD UREA NITROGEN 16 mg/dl (7-20); CALCIUM 8.6 mg/dl (8.4-10.2); CARBON DIOXIDE 34 mmol/L (21-31); CHLORIDE 103 mmol/L (97-110); CREATININE 0.63 mg/dl (0.61-1.24); Estimated GFR > 60 mL/min (>60); GLUCOSE 102 mg/dl (70-220); MAGNESIUM 1.8 mg/dl (1.7-2.5); PHOSPHORUS 3.6 mg/dl (2.5-4.9); POTASSIUM 4.3 mmol/L (3.5-5.1); SODIUM 139 mmol/L (135-144); TOTAL PROTEIN 6.5 g/dl (6.1-8.1)
[2018-10-28] MEDS: THIAMINE 100 MG TAB PO (09:09)
[2018-10-28] MEDS: GABAPENTIN 300 MG CAP PO ×2 (09:09→22:00)
[2018-10-28] MEDS: LEVETIRACETAM 500 MG TAB PO ×2 (09:09→22:00)
[2018-10-28] MEDS: SPIRONOLACTONE 50 MG TAB PO (09:09)
[2018-10-28] MEDS: FUROSEMIDE 20 MG INJ IV ×2 (09:09→22:01)
[2018-10-28] MEDS: HEPARIN 5,000 UNIT/1 ML VIAL SC ×2 (09:12→22:03)
[2018-10-28] MEDS: HYDROCODONE/APAP (5/325) TAB PO (14:31)
[2018-10-28] MEDS: ALBUMIN HUMAN 25% 50 ML IV (21:48)
[2018-10-29] MEDS: METOCLOPRAMIDE 10 MG INJ IV ×4 (00:33→17:45)
[2018-10-29] MEDS: ALBUTEROL/IPRATROPIUM (NEB) 3 ML AMP HHN ×6 (00:42→20:28)
[2018-10-29] MEDS: ALBUMIN HUMAN 25% 50 ML IV ×2 (03:47→12:10)
[2018-10-29] MEDS: LACTULOSE 30ML CUP PO (06:14)
[2018-10-29] MEDS: FUROSEMIDE 20 MG INJ IV (06:14)
[2018-10-29 06:28] LABS: ADD MAN DIFF? NO
[2018-10-29 06:33] LABS: WHITE BLOOD COUNT 6.5 10^3/ul (4.8-10.8)
[2018-10-29 06:33] LABS: BASOPHIL # 0.1 10^3/ul (0.0-0.1); BASOPHILS % 0.9 % (0.0-2.0); EOSINOPHILS # 0.5 10^3/ul (0.0-0.5); EOSINOPHILS % 6.9 % (0.0-7.0); HEMATOCRIT 32.8 % (42.0-52.0); LYMPHOCYTES # 1.1 10^3/ul (0.8-2.9); LYMPHOCYTES % 16.7 % (15.0-51.0); MEAN CORPUSCULAR HEMOGLOBIN 31.5 pg (29.0-33.0); MEAN CORPUSCULAR HGB CONC 33.5 g/dl (32.0-37.0); MEAN PLATELET VOLUME 9.5 fl (7.4-10.4); MONOCYTE # 0.8 10^3/ul (0.3-0.9); NEUTROPHIL # 4.1 10^3/ul (1.6-7.5); PLATELET COUNT 178 10^3/UL (140-415); RED BLOOD COUNT 3.49 10^6/ul (4.70-6.10); RED CELL DISTRIBUTION WIDTH 16.5 % (11.5-14.5)
[2018-10-29 06:57] LABS: ALANINE AMINOTRANSFERASE 34 IU/L (13-69); ALBUMIN 2.6 g/dl (3.3-4.9); ALBUMIN/GLOBULIN RATIO 0.65; ALKALINE PHOSPHATASE 141 IU/L (42-121); ANION GAP 4 (5-13); ASPARTATE AMINO TRANSFERASE 64 IU/L (15-46); BILIRUBIN,INDIRECT 0.8 mg/dl (0-1.1); BILIRUBIN,TOTAL 0.8 mg/dl (0.2-1.3); BLOOD UREA NITROGEN 17 mg/dl (7-20); CALCIUM 8.4 mg/dl (8.4-10.2); CARBON DIOXIDE 29 mmol/L (21-31); CHLORIDE 102 mmol/L (97-110); CREATININE 0.59 mg/dl (0.61-1.24); Estimated GFR > 60 mL/min (>60); GLUCOSE 135 mg/dl (70-220); SODIUM 135 mmol/L (135-144); TOTAL PROTEIN 6.6 g/dl (6.1-8.1)
[2018-10-29] MEDS: LEVETIRACETAM 500 MG TAB PO ×2 (08:47→21:53)
[2018-10-29] MEDS: SPIRONOLACTONE 50 MG TAB PO ×2 (08:47→21:53)
[2018-10-29] MEDS: THIAMINE 100 MG TAB PO (08:47)
[2018-10-29] MEDS: GABAPENTIN 300 MG CAP PO ×2 (08:47→21:53)
[2018-10-29] MEDS: HEPARIN 5,000 UNIT/1 ML VIAL SC ×2 (08:50→21:54)
[2018-10-29] MEDS: DICYCLOMINE 20 MG INJ IM (12:08)
[2018-10-29] MEDS: HYDROCODONE/APAP (5/325) TAB PO (14:37)
[2018-10-29] MEDS: LORAZEPAM 2 MG INJ IV (15:45)
[2018-10-29] MEDS ORDERED: CEPASTAT LOZENGE MT (18:00)
[2018-10-30] MEDS: ALBUTEROL/IPRATROPIUM (NEB) 3 ML AMP HHN ×5 (00:44→14:00)
[2018-10-30] MEDS: METOCLOPRAMIDE 10 MG INJ IV ×2 (01:38→06:00)
[2018-10-30] MEDS: HYDROCODONE/APAP (5/325) TAB PO ×2 (03:23→09:26)
[2018-10-30 05:55] LABS: ADD MAN DIFF? NO
[2018-10-30 06:00] LABS: BASOPHIL # 0.1 10^3/ul (0.0-0.1); EOSINOPHILS # 0.5 10^3/ul (0.0-0.5); EOSINOPHILS % 6.7 % (0.0-7.0); HEMATOCRIT 32.8 % (42.0-52.0); HEMOGLOBIN 10.7 g/dl (14.0-18.0); LYMPHOCYTES # 1.1 10^3/ul (0.8-2.9); LYMPHOCYTES % 15.4 % (15.0-51.0); MEAN CORPUSCULAR HEMOGLOBIN 31.3 pg (29.0-33.0); MEAN CORPUSCULAR HGB CONC 32.6 g/dl (32.0-37.0); MEAN CORPUSCULAR VOLUME 95.9 fl (82.0-101.0); MEAN PLATELET VOLUME 9.4 fl (7.4-10.4); MONOCYTE # 0.9 10^3/ul (0.3-0.9); MONOCYTES % 13.5 % (0.0-11.0); NEUTROPHIL # 4.3 10^3/ul (1.6-7.5); PLATELET COUNT 164 10^3/UL (140-415); RED BLOOD COUNT 3.42 10^6/ul (4.70-6.10); RED CELL DISTRIBUTION WIDTH 16.5 % (11.5-14.5)
[2018-10-30 06:00] LABS: WHITE BLOOD COUNT 6.8 10^3/ul (4.8-10.8)
[2018-10-30 06:37] LABS: ANION GAP 4 (5-13); BLOOD UREA NITROGEN 15 mg/dl (7-20); CALCIUM 8.6 mg/dl (8.4-10.2); CARBON DIOXIDE 29 mmol/L (21-31); CHLORIDE 106 mmol/L (97-110); CREATININE 0.71 mg/dl (0.61-1.24); Estimated GFR > 60 mL/min (>60); GLUCOSE 97 mg/dl (70-220); POTASSIUM 4.6 mmol/L (3.5-5.1); SODIUM 139 mmol/L (135-144)
[2018-10-30] MEDS: LACTULOSE 30ML CUP PO ×2 (09:00→09:28)
[2018-10-30] MEDS: THIAMINE 100 MG TAB PO (09:25)
[2018-10-30] MEDS: GABAPENTIN 300 MG CAP PO (09:25)
[2018-10-30] MEDS: SPIRONOLACTONE 50 MG TAB PO (09:25)
[2018-10-30] MEDS: LEVETIRACETAM 500 MG TAB PO (09:26)
[2018-10-30] MEDS: FUROSEMIDE 40 MG TAB PO (09:26)
[2018-10-30] MEDS: BARIUM SULF 2% 450 ML BTL (BERRY SMOOTHIE) PO (09:28)
[2018-10-30] MEDS: HEPARIN 5,000 UNIT/1 ML VIAL SC (09:28)
[2018-10-30] MEDS: PIPER-TAZO 3.375 GM IV (PMX) 100 ML IVPB (12:39)
== END 2018-10-30 14:00 | disposition left against medical advice (07) | DRG 894 ==
LOC: TEL 10-19 17:50 → PP2 10-23 00:39 → E/R 14:57 → PP2 10-22 22:10 → TEL 10-16 10:46
PROC: 0F798ZZ Dilation of Common Bile Duct, Via Natural or Artificial Opening Endoscopic (ICD-10-PCS; principal; 2018-10-22 14:55)
PROC: BF10YZZ Fluoroscopy of Bile Ducts using Other Contrast (ICD-10-PCS; 2018-10-22 14:55)
PROC: 0W9G3ZZ Drainage of Peritoneal Cavity, Percutaneous Approach (ICD-10-PCS; 2018-10-22 14:55)
DX: F10.220 Alcohol dependence with intoxication, uncomplicated (principal); K83.1 Obstruction of bile duct; G92 Toxic encephalopathy; J96.00 Acute respiratory failure, unspecified whether with hypoxia or hypercapnia; L03.115 Cellulitis of right lower limb; N39.0 Urinary tract infection, site not specified; L97.219 Non-pressure chronic ulcer of right calf with unspecified severity; K76.6 Portal hypertension; B19.10 Unspecified viral hepatitis B without hepatic coma; D64.9 Anemia, unspecified; D69.6 Thrombocytopenia, unspecified; F44.89 Other dissociative and conversion disorders; F41.9 Anxiety disorder, unspecified; F51.04 Psychophysiologic insomnia; G40.909 Epilepsy, unspecified, not intractable, without status epilepticus; F17.200 Nicotine dependence, unspecified, uncomplicated; I11.0 Hypertensive heart disease with heart failure; I50.9 Heart failure, unspecified; J44.9 Chronic obstructive pulmonary disease, unspecified; K70.31 Alcoholic cirrhosis of liver with ascites; K81.9 Cholecystitis, unspecified; L53.9 Erythematous condition, unspecified; N50.82 Scrotal pain; N50.89 Other specified disorders of the male genital organs; R07.1 Chest pain on breathing; R55 Syncope and collapse; R53.81 Other malaise; Y90.6 Blood alcohol level of 120-199 mg/100 ml; Z59.0 Homelessness
CPT/HCPCS: 36415; 70450; 71045; 74176; 74177; 74330; 76604; 76705; 78226; 80048; 80053; 80061; 80202; 80307; 81001; 82140; 82550; 82553; 83036; 83605; 83735; 83880; 84100; 84443; 84484; 85025; 85610; 85730; 86704; 86709; 86803; 87040; 87070; 87081; 87086; 87102; 87116; 87340; 87400; 89051; 92526; 92610; 93005; 93306; 93922; 93970; 94640; 94664; 95819; 96374; 96375; 97110; 97116; 97162; 97530; 99291-25